=== PATIENT | male | born 1960 | race African-American/Black ===

== ENCOUNTER 2018-04-01 13:08 | Emergency (ER) | payer MEDICAID ==
[~2018-04-01] VITALS: Ht 188 cm; Wt 118.8 kg
[2018-04-01 13:53] VITALS: BP 135/86
--- NOTE | 2018-04-01 13:57 | Diagnostic Imaging Report ---
Indication: Left facial paralysis for last 3 days Technique: Contiguous 5 mm thick transaxial imaging of the head obtained in a Siemens Sensation [address] scanner. Soft tissue and bone windows generated. Automatic Exposure Control was utilized. Total Dose length Product (DLP): [address] Dose Index Volume (CTDIvol): 0.15, 70.38 mGy Comparison: none Findings: The size and configuration of the cortical sulci, basal cisterns, and ventricles are within normal limits for age. There is no mass effect, midline shift, or edema identified. There is no evidence of acute hemorrhage or abnormal intra-axial or extra-axial fluid collections. The bones and soft tissues are unremarkable. Impression: No mass effect, edema or acute bleed. The CT scanner at is accredited by the [employer] and the scans are performed using dose optimization techniques as appropriate to a performed exam including Automatic Exposure control.
[2018-04-01] MEDS ORDERED: PREDNISONE20 MG ORAL (14:32)
[2018-04-01] MEDS ORDERED: ACYCLOVIR800 MG ORAL (14:32)
[2018-04-01] MEDS ORDERED: ARTIFICIAL TEAR15 ML LEFT EYE (14:32)
[2018-04-01 14:40] VITALS: BP 135/86
--- NOTE | 2018-04-02 07:20 | Emergency Room Report ---
History of Present Illness General Chief Complaint: General Complaint Source: Patient Present Illness HPI 57-year-old male presents ED complaining of facial droop 3 days. Denies pain. Denies slurred speech. Denies arm or leg weakness. Denies headache. Denies blurry vision. Denies difficulty swallowing. No other aggravating relieving factors. Denies any other associated symptoms Allergies: Coded Allergies: No Known Allergies (Unverified , 04/01/18) Patient History Past Medical History: none Past Surgical History: none Pertinent Family History: none Social History: Denies: smoking, alcohol use, drug use Immunizations: UTD Reviewed Nursing Documentation: PMH: Agreed; PSxH: Agreed Nursing Documentation-PMH Past Medical History: No Stated History Review of Systems All Other Systems: negative except mentioned in HPI Physical Exam Vital Signs Date Time Temp Pulse Resp B/P (MAP) Pulse Ox O2 Delivery O2 Flow Rate FiO2 04/01/18 13:17 98.2 103 18 138/86 95 Room Air 98.2 Sp02 EP Interpretation: reviewed, normal General Appearance: no apparent distress, alert, GCS 15, non-toxic Head: normocephalic Eyes: bilateral eye normal inspection, bilateral eye PERRL, bilateral eye EOMI , bilateral eye visual acuity ENT: hearing grossly normal, normal pharynx, no angioedema, normal voice Neck: full range of motion, supple/symm/no masses Respiratory: normal inspection Cardiovascular #1: normal inspection Gastrointestinal: normal inspection Rectal: deferred Genitourinary: normal inspection Musculoskeletal: normal inspection Neurologic: alert, oriented x3, responsive, motor strength/tone normal, sensory intact, speech normal, facial droop, other - unable to raise L eyebrow. unable to close L eye Psychiatric: judgement/insight normal, memory normal, mood/affect normal, no suicidal/homicidal ideation Skin: normal inspection Lymphatic: normal inspection Medical Decision Making Diagnostic Impression: Primary Impression: Galvez's palsy ER Course 57-year-old male presents to ED complaining of left-sided facial droop x 3 days Differential diagnoses include: migraine, CVA/TIA, bells palsy Clinical course Patient placed on stretcher. on cardiac catheterization technician. After initial history, physical exam reveals a middle aged male in no acute distress. There is no nuchal rigidity. Extraocular movements intact. There is no sensory deficit. Some mild facial droop on the left side. Unable to raise her eyebrow or close her left eye on the left. 5 out of 5 motor in both arms and legs. No sensory deficit. no slurred speech CT brain - no acute process noted Discussed findings with patient and family. Findings consistent with Galvez's palsy. Not likely stroke. Patient's mother is a nurse and agrees with assessment. Safe for discharge. We'll prescribe acyclovir, prednisone, artificial tears. Close follow-up with PMD I. I feel this is a highly complex case requiring extensive working including EKG/Rhythm strip, Xray/CT/US, Blood/urine lab work, repeat exams while in ED, and administration of strong opiates/narcotics for pain control, admission to hospital or close patient follow up. Diagnosis - [place] palsy Stable and discharged to home with prescription for acyclovir, prednisone, artificial tears. Follow-up with PMD. Return to ED if symptoms recur or worsen CT/MRI/US Diagnostic Results CT/MRI/US Diagnostic Results : Imaging Test Ordered: CT Head Impression no acute process Last Vital Signs Date Time Temp Pulse Resp B/P (MAP) Pulse Ox O2 Delivery O2 Flow Rate FiO2 04/01/18 14:40 98.2 100 16 135/86 96 Room Air 98.2 Status: improved Disposition: HOME, SELF-CARE Condition: Stable Scripts Dextran 70/Hypromellose (ARTIFICIAL TEARS EYE DROPS*) 15 Ml Drops 1 DROP LEFT EYE QID, #15 ML 0 Refills Prov: Demetrio Wise MD 04/01/18 Prednisone* (PREDNISONE*) 20 Mg Tablet 60 MG ORAL DAILY, #15 TAB Prov: Demetrio Wise MD 04/01/18 Acyclovir* (ZOVIRAX*) 800 Mg Tablet 800 MG ORAL FIVE TIMES A DAY for 7 Days, TAB Prov: Demetrio Wise MD 04/01/18 Referrals: [facility],REFERRING (PCP) Patient Instructions: [place] Palsy Demetrio Wise MD Apr 02, 2018 07:20
== END 2018-04-01 14:40 | disposition home or self-care (01) ==
LOC: EMR 13:53
DX: G51.0 Bell's palsy (principal)
CPT/HCPCS: 70450; 99284